=== PATIENT | female | born 1960 | race Caucasian/White ===

== ENCOUNTER 2017-04-10 15:10 | Emergency (ER) | payer MEDICARE, OTHER ==
[2017-04-10 15:17] VITALS: BP 122/65
--- NOTE | 2017-04-10 15:30 | UC ---
Throat Pain/Nasal Zachariah HPI - HPI Summary HPI Summary: C/O SENSATION OF INABILITY TO SWALLOW SOLIDS TODAY. FEELS FOOD IS GETTING STUCK. NO PROBLEM SWALLOWING LIQUIDS. VOICE IS HOARSE. IS VERY ANXIOUS ABOUT THIS. NO RESPIRATORY DIFFICULTY. NO SWELLING OF THE TONGUE OR LIPS. - History of Current Complaint Chief Complaint: UCGeneralIllness Stated Complaint: TROUBLE SWALLOWING Time Seen by Provider: 04/10/17 15:12 Hx Obtained From: Patient Onset/Duration: Sudden Onset, Still Present Severity: Moderate Pain Intensity: 2 Pain Scale Used: 0-10 Numeric Cough: None Associated Signs & Symptoms: Positive: Dysphagia - Allergies/Home Medications Allergies/Adverse Reactions: Allergies Allergy/AdvReac Type Severity Reaction Status Date / Time Latex Allergy Hives/Diff. Verified 04/10/17 15:11 Breathing/I tching Methadone Allergy Unknown Verified 04/10/17 15:11 Reaction Details Pravastatin Allergy Unknown Verified 04/10/17 15:11 Reaction Details Pregabalin [From Lyrica] AdvReac Severe Dizziness Verified 04/10/17 15:11 Home Medications: Home Medications Baclofen 1 tab PO TID PRN 04/10/17 [History Confirmed 04/10/17] PMH/Surg Hx/FS Hx/Imm Hx - Additional Past Medical History Additional PMH: CHRONIC BACK PAIN Endocrine History: Diabetes Cardiovascular History: Hypertension - Surgical History Surgical History: Yes Surgery Procedure, Year, and Place: AGE 7 - [facility] HIP SURGERY - DYSPLAGIA. TONSILECTOMY. ESOPHAGUS VOCAL CORDS - POLYPS [id number]. C3-7 LAMINECTOMY - STENOSIS. 2008 - L1-4 LAMINECTOMY Lt. L2 -3 DISCECTOMY. TUBAL LIGATION. ECTOPIC PREG. LT KNEE ARTHOSCOPY - Family History Known Family History: Negative: Blood Disorder - Social History Alcohol Use: None Substance Use Type: None Smoking Status (MU): Heavy Every Day Tobacco Smoker Type: Cigarettes Amount Used/How Often: 1/2 PPD Have You Smoked in the Last Year: Yes Household Exposure Type: Cigarettes Review of Systems Respiratory: Negative Cardiovascular: Negative Gastrointestinal: Other - DYSPHAGIA All Other Systems Reviewed And Are Negative: Yes Physical Exam Triage Information Reviewed: Yes Appearance: Well-Appearing, No Pain Distress, Well-Nourished Vital Signs: Initial Vital Signs Temp 98.5 F 04/10/17 15:11 Pulse 75 04/10/17 15:11 Resp 16 04/10/17 15:11 BP 122/65 04/10/17 15:11 Pulse Ox 97 04/10/17 15:11 Vital Signs Reviewed: Yes Eyes: Positive: Conjunctiva Clear ENT: Positive: Hearing grossly normal, Pharynx normal, Muffled/hoarse voice Neck: Positive: Supple, Nontender, No Lymphadenopathy Respiratory Exam: Normal Cardiovascular Exam: Normal Abdomen Description: Positive: Soft Musculoskeletal: Positive: No Edema Neurological: Positive: Alert Psychological: Positive: Age Appropriate Behavior Skin: Negative: rashes Diagnostics - Radiology SOFT TISSUE NECK XRAY Xray Interpretation: Positive (See Comments) - 1. NO EVIDENCE FOR RADIOPAQUE FOREIGN BODY. 2. CAROTID ATHEROSCLEROSIS. 3. MODERATE TO SEVERE CERVICAL SPONDYLOSIS. Radiology Interpretation Completed By: Radiologist Throat Pain/Nasal Course/Dx - Differential Dx/Diagnosis Provider Diagnoses: DYSPHAGIA Discharge - Discharge Plan Condition: Stable Disposition: HOME Patient Education Materials: Dysphagia (ED) Referrals: Eric Floyd MD [Primary Care Provider] - If Needed Additional Instructions: XRAY SOFT TISSUE NECK DOES NOT SHOW ANYTHING TO ACCOUNT FOR YOUR SYMPTOMS. RAPID STREP NEGATIVE. THIS MAY BE A VIRAL ILLNESS GIVING YOU LARYNGITIS AND SORE THROAT. IF SYMPTOMS ARE PERSISTENT ON WEDNESDAY CALL GI FOR AN APPT FOR FURTHER EVALUATION. IF YOUR SYMPTOMS WORSEN - YOU CAN NOT SWALLOW ANYTHING, WORSENING PAIN, FEVER, VOMITING, YOU CAN NOT HANDLE YOUR SALIVA - GO TO THE ER WITHOUT FAIL. [facility] Address: [address], [place] [address]
--- NOTE | 2017-04-10 16:11 | RAD ---
INDICATION: Dysphagia. COMPARISON: There are no prior studies available for comparison. TECHNIQUE: AP and lateral images of the soft tissue of the neck were obtained. FINDINGS: The epiglottis and aryepiglottic folds appear to be within normal limits. The retropharyngeal soft tissues appear normal. The airway appears patent. No radiopaque foreign body is seen. There is moderate to severe degenerative disc disease at the C3-C4, C4-C5, C5-C6 and C6-C7 levels. There is a calcification lateral to the C5 vertebra on the right likely representing a carotid artery calcific plaque. IMPRESSION: 1. NO EVIDENCE FOR RADIOPAQUE FOREIGN BODY. 2. CAROTID ATHEROSCLEROSIS. 3. MODERATE TO SEVERE CERVICAL SPONDYLOSIS.
== END 2017-04-10 16:41 | disposition home or self-care (01) ==
LOC: UCEAST 15:10
DX: R13.10 Dysphagia, unspecified (principal); E11.8 Type 2 diabetes mellitus with unspecified complications; I10 Essential (primary) hypertension; F17.210 Nicotine dependence, cigarettes, uncomplicated
CPT/HCPCS: 70360; 87651; 99212; G0463

== ENCOUNTER 2018-08-15 10:02 | Emergency (ER) | payer MEDICARE, OTHER ==
--- NOTE | 2018-08-15 10:42 | ED ---
Skin Complaint - HPI Summary HPI Summary: Patient is a 58 y/o F w/ c/o bruising to her right arm. She believes that she pulled a muscle a few days ago and notes the area feels hard and tender. Patient reports minimal pain and was unconcerned about the area until she spoke to her children, who convinced her to come to ED for evaluation. She denies bruising at any other region. Patient takes ASA daily, no blood thinners otherwise. Patient further denies fever, chills, ARANGO, ear pain, sore throat, blurred vision, double vision, neck pain, CP, SOB, ABD pain, back pain, dysuria , hematuria, blood in the stool, black/tarry stool, edema, rashes, depression and anxiety. PMHx of HTN, diabetes. PSHx of back surgery x2. On triage, pain is rated 1/10, nothing is reported to aggravate/alleviate Sx. Home medications and allergies are reviewed. - History of Current Complaint Chief Complaint: EDExtremityUpper Stated Complaint: PT ARM IS PURPLE Hx Obtained From: Patient Onset/Duration: Started Days Ago - a few days ago, Still Present Skin Exposure Onset/Duration: Days Ago - a few days ago Timing: Constant, Lasting Days - a few days ago Onset Severity: Mild - 1/10 Current Severity: Mild - 1/10 Pain Intensity: 1 Pain Scale Used: 0-10 Numeric - 1/10 Skin Location: Arm - right Character: Swelling, Pain - slight Aggravating Symptom(s): Nothing Alleviating Symptom(s): Nothing Associated Signs & Symptoms: Negative - Allergy/Home Medications Allergies/Adverse Reactions: Allergies Allergy/AdvReac Type Severity Reaction Status Date / Time latex Allergy Severe Hives/Diff. Verified 08/15/18 10:58 Breathing/I tching pregabalin [From Lyrica] Allergy Mild Dizziness Verified 08/15/18 10:58 methadone Allergy Unknown Unknown Verified 08/15/18 10:58 Reaction Details pravastatin Allergy Unknown Unknown Verified 08/15/18 10:58 Reaction Details Home Medications: Home Medications Naproxen Sodium [Aleve] 440 mg PO BID 08/15/18 [History Confirmed 08/15/18] PMH/Surg Hx/FS Hx/Imm Hx Endocrine/Hematology History: Reports: Hx Diabetes Denies: Hx Anemia Cardiovascular History: Reports: Hx Hypertension Denies: Hx Pacemaker/ICD GI History: Denies: Hx Jaundice History: Denies: Hx Renal Disease Musculoskeletal History: Reports: Hx Back Problems Sensory History: Denies: Hx Hearing Aid Neurological History: Reports: Other Neuro Impairments/Disorders - CHRONIC LUMBAR PAIN EVEN AFTER SURGERIES, PAIN CLINIC PATIENT Psychiatric History: Denies: Hx Panic Disorder - Cancer History Cancer Type, Location and Year: PRE CANCEROUS CERVICAL Hx Chemotherapy: No Hx Radiation Therapy: No - Surgical History Surgery Procedure, Year, and Place: AGE 7 - [facility] HIP SURGERY - DYSPLAGIA. TONSILECTOMY. ESOPHAGUS VOCAL CORDS - POLYPS [id number]. C3-7 LAMINECTOMY - STENOSIS. 2008 - L1-4 LAMINECTOMY Lt. L2 -3 DISCECTOMY. TUBAL LIGATION. ECTOPIC PREG. LT KNEE ARTHOSCOPY Infectious Disease History: No Infectious Disease History: Denies: Traveled Outside the [place] in Last 30 Days - Family History Known Family History: Negative: Blood Disorder - Social History Alcohol Use: None Substance Use Type: Reports: None Smoking Status (MU): Former Smoker Type: Cigarettes Amount Used/How Often: 2-3 cigarettes/week Have You Smoked in the Last Year: Yes Review of Systems Negative: Fever, Chills Positive: Other - NEGATIVE: double vision . Negative: Blurred Vision Negative: Sore Throat, Ear Ache Negative: Chest Pain Negative: Shortness Of Breath Negative: Abdominal Pain Positive: other - NEGATIVE: blood in stool, black/tarry stools . Negative: dysuria, hematuria Positive: Other - NEGATIVE: back pain, neck pain . Negative: Edema Positive: Bruising - right arm, area feels hard and tender. Negative: Rash Negative: Headache Negative: Anxious, Depressed All Other Systems Reviewed And Are Negative: No Physical Exam - Summary Physical Exam Summary: Appearance: Alert, conversive, nontoxic appearing Skin: Warm, dry, no mottling, no rashes; large hematoma on right arm close to the axilla. HEENT: EOMI, PERRL, moist mucous membranes Neck: No masses on the neck, supple Respiratory: Clear to auscultation, breath sounds present, no rales, no rhonchi , no wheezes Cardiovascular: RRR, pulses are symmetrical in both lower and upper extremities Abdomen: Soft, non-tender Bowel Sounds: Present Musculoskeletal: No CVA tenderness, no obvious deformity, moving all extremities in a grossly normal manner Neurological: A&Ox3, CN II-XII Intact, moving all extremities symmetrically Psychiatric: Normal affect and mood Triage Information Reviewed: Yes Vital Signs On Initial Exam: Initial Vitals Temp Pulse Resp BP Pulse Ox 97.7 F 77 18 138/95 95 08/15/18 10:24 08/15/18 10:24 08/15/18 10:24 08/15/18 10:24 08/15/18 10:24 Vital Signs Reviewed: Yes Diagnostics - Vital Signs Vital Signs Temp Pulse Resp BP Pulse Ox 08/15/18 10:24 97.7 F 77 18 138/95 95 - Laboratory Result Diagrams: 08/15/18 11:07 08/15/18 11:07 Lab Statement: Any lab studies that have been ordered have been reviewed, and results considered in the medical decision making process. Re-Evaluation - Re-Evaluation First Eval Re-Evaluation Time: 12:06 Comment: Discussed results of labs with patient. Patient will be discharged to home and follow up with PCP. She is agreeable with this plan. Course/Dx - Course Course Of Treatment: Patient is a 58 y/o F w/ c/o bruising to her right arm. She believes that she pulled a muscle a few days ago and notes the area feels hard and tender. Patient reports minimal pain and was unconcerned about the area until she spoke to her children, who convinced her to come to ED for evaluation. She denies bruising at any other region. Patient takes ASA daily, no blood thinners otherwise. On physical exam, patient is noted to have a large hematoma at the right arm close to the axilla. Labs showed glucose 192, BUN/ creatinine ratio 25.6, chloride 100, sodium 132, MPV 7, lymph % 22. Plt count was 328. Patient was discharged to home and instructed to follow up with PCP. She is agreeable with this plan. Dx of right arm contusion. - Diagnoses Provider Diagnoses: Contusion of right arm Discharge - Sign-Out/Discharge Documenting (check all that apply): Patient Departure - discharge - Discharge Plan Condition: Stable Disposition: HOME Patient Education Materials: Hematoma (ED) Referrals: Eric Floyd MD [Primary Care Provider] - Additional Instructions: Follow up with your primary care physician. return if worse or any new symptoms. Take all medications as previously instructed. - Billing Disposition and Condition Condition: STABLE Disposition: Home - Attestation Statements Document Initiated by Scribe: Yes Documenting Scribe: Christiano Nunez Provider For Whom Scribe is Documenting (Include Credential): Jo Dejesus MD Scribe Attestation: I, Christiano Nunez , scribed for Jo Dejesus MD on 08/15/18 at 2027. Scribe Documentation Reviewed: Yes Provider Attestation: The documentation as recorded by the Christiano ward accurately reflects the service I personally performed and the decisions made by me, Jo Dejesus MD
[2018-08-15 11:19] LABS: ABS Basophils 0 10^3/ul (0-0.2); ABS Eosinophils 0.3 10^3/ul (0-0.6); ABS Monocytes 0.5 10^3/ul (0-0.8); ABS Neutrophils 6.2 10^3/ul (1.5-7.7); ABS Nucleated RBC 0 10^3/ul; Eosinophil % 3.2 % (0-6); Hematocrit 41 % (35-47); Hemoglobin 13.8 g/dl (12.0-16.0); Mean Corpuscular HGB Conc 34 g/dl (31-36); Mean Corpuscular Hemoglobin 30 pg (27-31); Mean Corpuscular Volume 88 fL (80-97); Nucleated Red Blood Cells % 0.1; Platelet Count 328 10^3/ul (150-450); Red Blood Count 4.66 10^6/ul (4.00-5.40); Red Cell Distribution Width 14 % (10.5-15)
[2018-08-15 11:34] LABS: INR 0.97 (0.77-1.02)
[2018-08-15 11:35] LABS: EGFR Non-African American 67.3 (>60)
[2018-08-15 12:43] VITALS: BP 125/80
== END 2018-08-15 12:40 | disposition home or self-care (01) ==
LOC: ED 10:02
DX: S40.021A Contusion of right upper arm, initial encounter (principal); Z87.891 Personal history of nicotine dependence; E11.9 Type 2 diabetes mellitus without complications; I10 Essential (primary) hypertension; Z79.82 Long term (current) use of aspirin; X58.XXXA Exposure to other specified factors, initial encounter; Y92.9 Unspecified place or not applicable
CPT/HCPCS: 36415; 80053; 85025; 85610; 85730; 99282

== ENCOUNTER 2018-10-18 15:03 | Emergency (ER) | payer MEDICARE, OTHER ==
[2018-10-18 15:28] VITALS: BP 160/73
[2018-10-18] MEDS ORDERED: Albuterol/Ipratropium NEB.SOL* Albuterol 2.5 MG/Ipratropium 0.5 MG 3 ML INH ONE (15:56)
--- NOTE | 2018-10-18 16:01 | ED ---
Respiratory - HPI Summary HPI Summary: Ms. Barrett presents to the emergency department stating that she has had URI symptoms for couple of weeks. She was seen by her PCP who started her on an inhaler and an antibiotic. Most of her symptoms have resolved but she continues to cough sometimes paroxysmally and severely causing shortness of breath and sometimes she feels short of breath when ambulating. She denies fevers - History of Current Complaint Chief Complaint: UCRespiratory Stated Complaint: COUGH Time Seen by Provider: 10/18/18 15:45 Hx Obtained From: Patient Onset/Duration: Gradual Onset Timing: Constant Initial Severity: Mild Current Severity: Moderate Pain Intensity: 1 Character: Cough (Productive), Dyspnea on Exertion Sputum Amount: Large Aggravating Factor(s): Nothing Alleviating Factor(s): MDI (Frequency Of Use) Associated Signs and Symptoms: SOB - Allergy/Home Medications Allergies/Adverse Reactions: Allergies Allergy/AdvReac Type Severity Reaction Status Date / Time latex Allergy Severe Hives/Diff. Verified 10/18/18 15:12 Breathing/I tching pregabalin [From Lyrica] Allergy Mild Dizziness Verified 10/18/18 15:12 methadone Allergy Unknown Unknown Verified 10/18/18 15:12 Reaction Details pravastatin Allergy Unknown Unknown Verified 10/18/18 15:12 Reaction Details Home Medications: Home Medications Albuterol HFA INHALER* [Ventolin HFA Inhaler*] 1 - 2 puff INH Q4H PRN 10/18/18 [ History Confirmed 10/18/18] Clarithromycin TAB* [Biaxin 250 MG TAB*] 250 mg PO BID 10/18/18 [History Confirmed 10/18/18] PMH/Surg Hx/FS Hx/Imm Hx Endocrine/Hematology History: Reports: Hx Diabetes - meds Denies: Hx Thyroid Disease, Hx Anemia Cardiovascular History: Reports: Hx Hypertension - meds Denies: Hx Pacemaker/ICD Respiratory History: Denies: Hx Asthma, Hx Chronic Obstructive Pulmonary Disease (COPD) GI History: Denies: Hx Jaundice, Hx Ulcer History: Denies: Hx Renal Disease Musculoskeletal History: Reports: Hx Back Problems Sensory History: Denies: Hx Hearing Aid Neurological History: Reports: Other Neuro Impairments/Disorders - CHRONIC LUMBAR PAIN EVEN AFTER SURGERIES, PAIN CLINIC PATIENT Psychiatric History: Denies: Hx Panic Disorder - Cancer History Cancer Type, Location and Year: PRE CANCEROUS CERVICAL Hx Chemotherapy: No Hx Radiation Therapy: No - Surgical History Surgery Procedure, Year, and Place: AGE 7 - [facility] HIP SURGERY - DYSPLAGIA. TONSILECTOMY. ESOPHAGUS VOCAL CORDS - POLYPS [id number]. C3-7 LAMINECTOMY - STENOSIS. 2009 - L1-4 LAMINECTOMY Lt. L2 -3 DISCECTOMY. TUBAL LIGATION. ECTOPIC PREG. LT KNEE ARTHOSCOPY Infectious Disease History: No Infectious Disease History: Denies: Hx Hepatitis, Hx Human Immunodeficiency Virus (HIV), Traveled Outside the [place] in Last 30 Days - Family History Known Family History: Negative: Blood Disorder - Social History Alcohol Use: None Substance Use Type: Reports: None Smoking Status (MU): Former Smoker Type: Cigarettes Amount Used/How Often: 2-3 cigarettes/week Have You Smoked in the Last Year: Yes Review of Systems Constitutional: Negative Eyes: Negative ENT: Negative Positive: Shortness Of Breath, Cough Gastrointestinal: Negative All Other Systems Reviewed And Are Negative: Yes Physical Exam - Summary Physical Exam Summary: She is non-toxic in appearance and her vitals are stable. Triage Information Reviewed: Yes Vital Signs On Initial Exam: Initial Vitals Temp Pulse Resp BP Pulse Ox 98.8 F 72 17 160/73 93 10/18/18 15:21 10/18/18 15:21 10/18/18 15:21 10/18/18 15:21 10/18/18 15:21 Vital Signs Reviewed: Yes Appearance: Positive: Well-Appearing Skin: Positive: Warm, Skin Color Reflects Adequate Perfusion, Dry Eyes: Positive: Normal ENT: Positive: Normal ENT inspection Neck: Positive: Supple Respiratory/Lung Sounds: Positive: Wheezes - Slight expiratory Cardiovascular: Positive: Normal Neurological: Positive: Normal Diagnostics - Vital Signs Vital Signs Temp Pulse Resp BP Pulse Ox 10/18/18 15:21 98.8 F 72 17 160/73 93 - Laboratory Lab Statement: Any lab studies that have been ordered have been reviewed, and results considered in the medical decision making process. - Radiology CXR Radiology Interpretation Completed By: Radiologist - No acute process Disposition - Course Course Of Treatment: Ms. Barrett presented to the department complaining of URI' s symptoms for about a week. She saw her physician is started on antibiotics and an inhaler but she still complaining of shortness of breath with any exertion. She was nontoxic in appearance and her vital signs are stable. She did have an expiratory wheeze especially with coughing. She was given a nebulizer treatment here which improved her clinically. Chest x-ray was unremarkable. I recommended a Medrol Dosepak. She is diabetic and does fingersticks at night I recommended she use her sliding scale and warned her that her blood sugars could go up with the steroid treatment. I recommended close follow-up with her PCP. Her blood pressure was a little bit high and I recommended she follow up with her PCP for that also. - Diagnoses Provider Diagnoses: Bronchospasm with bronchitis, acute Discharge - Sign-Out/Discharge Documenting (check all that apply): Patient Departure All imaging exams completed and their final reports reviewed: Yes - Discharge Plan Condition: Stable Disposition: HOME Prescriptions: methylPREDNISolone [Medrol Dosepak 4 MG*] 4 mg PO .SEE ALBINA INSTRUCTION #1 tab Patient Education Materials: Bronchospasm (ED), Acute Bronchitis (ED) Referrals: Eric Floyd MD [Primary Care Provider] - - Billing Disposition and Condition Condition: STABLE Disposition: Home
== END 2018-10-18 17:17 | disposition home or self-care (01) ==
LOC: UCEAST 15:03
DX: J20.9 Acute bronchitis, unspecified (principal); E11.9 Type 2 diabetes mellitus without complications; I10 Essential (primary) hypertension; J44.9 Chronic obstructive pulmonary disease, unspecified; J45.909 Unspecified asthma, uncomplicated; G89.29 Other chronic pain; M54.5 Low back pain; Z91.040 Latex allergy status; Z88.8 Allergy status to other drugs, medicaments and biological substances; Z88.5 Allergy status to narcotic agent; Z90.89 Acquired absence of other organs; Z87.891 Personal history of nicotine dependence
CPT/HCPCS: 71046; 99212; A9270-GY; G0463

== ENCOUNTER 2018-11-11 11:12 | Emergency (ER) | payer MEDICARE, OTHER ==
[2018-11-11 12:01] VITALS: BP 118/88
--- NOTE | 2018-11-11 12:30 | UC ---
Shortness of Breath HPI - HPI Summary HPI Summary: Patient is a 58-year-old female who has had cough congestion postnasal drip times weeks. She states in the past week she has had some dyspnea. He denies any fever or chills. She denies any chest pain. - History of Current Complaint Chief Complaint: UCRespiratory Stated Complaint: COUGH SOB Time Seen by Provider: 11/11/18 12:21 Hx Obtained From: Patient Onset/Duration: Gradual Onset, Lasting Weeks Timing: Constant Current Severity: None Dyspnea At: Exertion Aggrevating Factors: Recumbent Position Alleviating Factors: Bronchodilators Associated Signs & Symptoms: Positive: Cough (Productive), Nasal Congestion, Edema - Allergy/Home Medications Allergies/Adverse Reactions: Allergies Allergy/AdvReac Type Severity Reaction Status Date / Time latex Allergy Severe Hives/Diff. Verified 11/11/18 11:52 Breathing/I tching pregabalin [From Lyrica] Allergy Mild Dizziness Verified 11/11/18 11:52 methadone Allergy Unknown Unknown Verified 11/11/18 11:52 Reaction Details pravastatin Allergy Unknown Unknown Verified 11/11/18 11:52 Reaction Details PMH/Surg Hx/FS Hx/Imm Hx Previously Healthy: Yes Endocrine History: Diabetes Cardiovascular History: Hypertension Respiratory History: Bronchitis - Surgical History Surgical History: Yes Surgery Procedure, Year, and Place: AGE 7 - [place] HIP SURGERY - DYSPLAGIA. TONSILECTOMY. ESOPHAGUS VOCAL CORDS - POLYPS [id number]. C3-7 LAMINECTOMY - STENOSIS. 2009 - L1-4 LAMINECTOMY Lt. L2 -3 DISCECTOMY. TUBAL LIGATION. ECTOPIC PREG. LT KNEE ARTHOSCOPY - Family History Known Family History: Positive: Hypertension Negative: Blood Disorder - Social History Alcohol Use: None Substance Use Type: None Smoking Status (MU): Former Smoker Type: Cigarettes Amount Used/How Often: 2-3 cigarettes/week Have You Smoked in the Last Year: Yes Household Exposure Type: Cigarettes - Immunization History Most Recent Tetanus Shot: UTD Review of Systems All Other Systems Reviewed And Are Negative: Yes Constitutional: Positive: Fatigue Skin: Positive: Negative Eyes: Positive: Negative ENT: Positive: Negative Respiratory: Positive: Shortness Of Breath, Cough Cardiovascular: Positive: Negative Gastrointestinal: Positive: Negative Genitourinary: Positive: Negative Motor: Positive: Negative Neurovascular: Positive: Negative Musculoskeletal: Positive: Edema Neurological: Positive: Negative Psychological: Positive: Negative Physical Exam Triage Information Reviewed: Yes Appearance: Well-Appearing, No Pain Distress, Well-Nourished Vital Signs: Initial Vital Signs Temp 98.5 F 11/11/18 11:33 Pulse 77 11/11/18 11:33 Resp 17 11/11/18 11:33 BP 118/88 11/11/18 11:33 Pulse Ox 97 11/11/18 11:33 Vital Signs Reviewed: Yes Eyes: Positive: Conjunctiva Clear ENT: Positive: Hearing grossly normal, Nasal congestion, Hoarse voice, Sinus tenderness. Negative: Nasal drainage Neck: Positive: Supple, Nontender Respiratory: Positive: No respiratory distress, No accessory muscle use, Wheezing - with forced expiration. Negative: Respiratory distress Cardiovascular: Positive: RRR, No Murmur Musculoskeletal: Positive: ROM Intact, Edema @ - +1 pretibial edema Neurological: Positive: Alert Psychological Exam: Normal Skin Exam: Normal Diagnostics - Radiology No standard instances Radiology Interpretation Completed By: Radiologist Summary of Radiographic Findings: CXR NAD Re-Evaluation - Re-Evaluation First Eval Re-Evaluation Time: 13:44 Change: Improved Comment: better air movement, lungs CTA Shortness of Breath Dx - Differential Dx/Diagnosis Provider Diagnosis: Bronchospasm with bronchitis, acute Discharge - Sign-Out/Discharge Documenting (check all that apply): Patient Departure All imaging exams completed and their final reports reviewed: Yes - Discharge Plan Condition: Stable Disposition: HOME Patient Education Materials: Acute Bronchitis (ED) Referrals: Eric Floyd MD [Primary Care Provider] - 3 Days Additional Instructions: use inhaler as directed - Billing Disposition and Condition Condition: STABLE Disposition: Home
[2018-11-11] MEDS ORDERED: Albuterol 2.5 MG/3 ML NEB.SOL* (0.083%) INH ONE (13:01)
[2018-11-11] MEDS ORDERED: Ipratropium 0.5MG/2.5ML NEB* 0.5 MG/2.5 ML NEB.SOLN INH ONE (13:01)
== END 2018-11-11 13:53 | disposition home or self-care (01) ==
LOC: UCEAST 11:12
DX: J20.9 Acute bronchitis, unspecified (principal); Z88.8 Allergy status to other drugs, medicaments and biological substances; Z91.040 Latex allergy status; Z87.891 Personal history of nicotine dependence
CPT/HCPCS: 71046; 99213; G0463

== ENCOUNTER 2019-11-11 11:40 | Emergency (ER) | payer OTHER ==
--- NOTE | 2019-11-11 12:30 | UC ---
Hip/Pelvis Pain - HPI Summary HPI Summary: patient fell 3 days ago-she is still limping on right leg and has pain--has bilateral pinning of hips-- - History Of Current Complaint Chief Complaint: UCLowerExtremity Stated Complaint: HIP PAIN Time Seen by Provider: 11/11/19 12:24 Hx Obtained From: Patient Hx Last Menstrual Period: menapause ?: No Mechanism Of Injury: fall Onset/Duration: Sudden Onset, Worse Since - this morning right leg is not as sturdy Timing: Constant Severity Initially: Moderate Severity Currently: Moderate Pain Intensity: 8 Pain Scale Used: 0-10 Numeric Location: Discrete At: - right hip Character Of Pain: Aching Aggravating Factor(s): Nothing Alleviating Factor(s): Nothing Associated Signs And Symptoms: Positive: Negative - Allergies/Home Medications Allergies/Adverse Reactions: Allergies Allergy/AdvReac Type Severity Reaction Status Date / Time latex Allergy Severe Hives/Diff. Verified 11/11/19 11:53 Breathing/I tching pregabalin [From Lyrica] Allergy Mild Dizziness Verified 11/11/19 11:53 methadone Allergy Unknown Unknown Verified 11/11/19 11:53 Reaction Details pravastatin Allergy Unknown Unknown Verified 11/11/19 11:53 Reaction Details PMH/Surg Hx/FS Hx/Imm Hx Previously Healthy: No Endocrine History: Diabetes Cardiovascular History: Hypertension - Surgical History Surgical History: Yes Surgery Procedure, Year, and Place: AGE 7 - [facility] HIP SURGERY - DYSPLAGIA. TONSILECTOMY. ESOPHAGUS VOCAL CORDS - POLYPS [id number]. C3-7 LAMINECTOMY - STENOSIS. 2009 - L1-4 LAMINECTOMY Lt. L2 -3 DISCECTOMY. TUBAL LIGATION. ECTOPIC PREG. LT KNEE ARTHOSCOPY - Family History Known Family History: Positive: Hypertension Negative: Blood Disorder - Social History Occupation: Disabled Lives: With Family Alcohol Use: None Substance Use Type: None Smoking Status (MU): Former Smoker Type: Cigarettes Amount Used/How Often: 1-2 cigarettes/day sometimes Length of Time of Smoking/Using Tobacco: states "years and years" Have You Smoked in the Last Year: Yes Household Exposure Type: Cigarettes - Immunization History Most Recent Tetanus Shot: UTD Review of Systems All Other Systems Reviewed And Are Negative: Yes Constitutional: Positive: Negative Skin: Positive: Negative Eyes: Positive: Negative ENT: Positive: Negative Respiratory: Positive: Negative Cardiovascular: Positive: Negative Gastrointestinal: Positive: Negative Genitourinary: Positive: Negative Motor: Positive: Weakness - right leg Neurovascular: Positive: Negative Musculoskeletal: Positive: Arthralgia - right hip Neurological: Positive: Negative Psychological: Positive: Negative Is Patient Immunocompromised?: No Physical Exam Triage Information Reviewed: Yes Appearance: Well-Appearing, No Pain Distress, Obese Vital Signs: Initial Vital Signs Temp 98.2 F 11/11/19 11:55 Pulse 75 11/11/19 11:55 Resp 18 11/11/19 11:55 BP 0/0 11/11/19 11:55 Pulse Ox 97 11/11/19 11:55 Vital Signs Reviewed: Yes Eye Exam: Normal Eyes: Positive: Conjunctiva Clear ENT Exam: Normal ENT: Positive: Normal ENT inspection, Hearing grossly normal. Negative: Trismus , Muffled voice, Hoarse voice Dental Exam: Normal Neck exam: Normal Neck: Positive: Supple, Nontender Respiratory Exam: Normal Respiratory: Positive: Chest non-tender, Lungs clear, Normal breath sounds, No respiratory distress, No accessory muscle use Cardiovascular Exam: Normal Cardiovascular: Positive: RRR, No Murmur, Pulses Normal, Brisk Capillary Refill Musculoskeletal: Positive: ROM Intact, No Edema, Strength Limited @ - right leg Neurological Exam: Normal Neurological: Positive: Alert, Muscle Tone Normal Psychological Exam: Normal Psychological: Positive: Normal Response To Family Skin Exam: Normal Diagnostics - Radiology No standard instances Radiology Interpretation Completed By: ED Physician, Radiologist - no acute injury right hip or lumbar spine Hip Injury Course/Dx - Course Course Of Treatment: may continue pain medications as rx---encourage patient to use walker until steady on feet and re seen by pcp - Differential Dx/Diagnosis Provider Diagnosis: Fall, Right hip pain Discharge ED - Sign-Out/Discharge Documenting (check all that apply): Patient Departure All imaging exams completed and their final reports reviewed: Yes - Discharge Plan Condition: Stable Disposition: HOME Patient Education Materials: Fall Prevention (ED), Hip Pain (ED) Referrals: Eric Floyd MD [Primary Care Provider] - 2 Days - Billing Disposition and Condition Condition: STABLE Disposition: Home
[2019-11-11 13:40] VITALS: BP 100/58
== END 2019-11-11 14:05 | disposition home or self-care (01) ==
LOC: UCEAST 11:40
DX: M25.551 Pain in right hip (principal); W18.30XA Fall on same level, unspecified, initial encounter; Y92.9 Unspecified place or not applicable; E11.9 Type 2 diabetes mellitus without complications; I10 Essential (primary) hypertension; Z88.5 Allergy status to narcotic agent; Z88.8 Allergy status to other drugs, medicaments and biological substances; Z91.040 Latex allergy status; Z87.891 Personal history of nicotine dependence
CPT/HCPCS: 72110; 99201; G0463

== ENCOUNTER 2023-09-19 11:39 | Inpatient (IN) ==
[2023-09-19 14:04] LABS: Venous Bicarbonate HCO3 27.9 mmol/L (24-28)
[2023-09-19 14:08] LABS: ABS Eosinophils 0.1 10^3/uL (0.0-0.5); ABS Lymphocytes 1.2 10^3/uL (1.0-4.8); ABS Monocytes 0.6 10^3/uL (0.0-0.9); ABS Neutrophils 8.2 10^3/uL (1.5-7.6); ABS Nucleated RBC 0.01 10^3/ul; Eosinophil % 1.5 %; Hematocrit 47.6 % (35-45); Hemoglobin 16.2 g/dL (11.5-14.3); Lymphocyte % 11.9 %; Mean Corpuscular Hemoglobin 29.2 pg (27-33); Mean Corpuscular Hgb Conc 34.1 g/dL (31-36); Mean Corpuscular Volume 85.8 fL (80-97); Mean Platelet Volume 7.5 fL (7.5-11.2); Nucleated Red Blood Cells % 0.1 %/100WBC (0.0-0.8); Platelet Count 354 10^3/uL (150-450); Red Blood Count 5.55 10^6/uL (3.63-4.92); Red Cell Distribution Width 14.3 % (12-17); White Blood Count 10.1 10^3/uL (3.8-11.8)
[2023-09-19 14:27] LABS: Albumin 3.6 g/dL (3.2-5.2); Albumin/Globulin Ratio 1.3 (1-3); Calcium 8.9 mg/dL (8.6-10.3); Creatinine, Serum 0.76 mg/dL (0.51-0.95); Globulin 2.8 g/dL (2-4); Total Bilirubin 0.7 mg/dL (0.2-1.0); Total Protein 6.4 g/dL (6.4-8.9); eGFR CKD-EPI 86.9 (>60)
[2023-09-19] MEDS ORDERED: Albuterol/Ipratropium NEB.SOL (2.5/0.5 MG) 3 ML NEB.SOLN INH ONE (14:32)
[2023-09-19] MEDS ORDERED: Lactated Ringers 1000 ml BAG 1,000 ML IV ONE (15:10)
[2023-09-19] MEDS ORDERED: Dextrose 50% Syringe 50 ml 25 GM/50 ML SYRINGE IV PUSH ONE (15:22)
[2023-09-19 15:26] LABS: TSH Ultra Thyroid Stim Horm 0.38 mcIU/mL (0.34-5.60)
[2023-09-19 15:36] LABS: Urine Appearance Clear; Urine Bilirubin Negative (Negative); Urine Blood 1+ (Negative); Urine Color Yellow; Urine Glucose 3+(>=500 mg/dL) (Negative); Urine Ketones Negative (Negative); Urine Nitrite Negative (Negative); Urine Protein Negative (Negative); Urine Specific Gravity 1.029 (1.002-1.030); Urine Urobilinogen Negative (Negative)
[2023-09-19 15:42] LABS: Urine Bacteria Absent (Absent); Urine Red Blood Cell 2+(6-10/hpf) (Absent); Urine Squamous Epithelial Cell Present (Absent); Urine White Blood Cell 2+(11-20/hpf) (Absent)
[2023-09-19] MEDS ORDERED: Dextrose 50% Syringe 50 ml 25 GM/50 ML SYRINGE IV PUSH PRN ×2 (17:34→17:41)
[2023-09-19 17:41] LABS: Glucose Confirmatory 433 mg/dL (70-100)
[2023-09-19] MEDS ORDERED: NORMOSOL-R pH 7.4 1000 mL BAG 1,000 ML IV ONE (17:41)
[2023-09-19] MEDS ORDERED: Albuterol/Ipratropium NEB.SOL (2.5/0.5 MG) 3 ML NEB.SOLN INH PRN (17:45)
[2023-09-19] MEDS ORDERED: Insulin Infusion 100unit/100mL 100 UNIT/100 ML BAG IV SCH (18:00)
[2023-09-19] MEDS ORDERED: D5W 1/2 NS 1000 ml BAG 1,000 ML IV SCH (18:00)
[2023-09-19] MEDS ORDERED: NORMOSOL-R pH 7.4 1000 mL BAG 1,000 ML IV SCH (19:00)
[2023-09-19 20:54] LABS: Calcium 8.9 mg/dL (8.6-10.3); Creatinine, Serum 0.66 mg/dL (0.51-0.95); Potassium 3.8 mmol/L (3.5-5.0); eGFR CKD-EPI 97.3 (>60)
[2023-09-19] MEDS: Heparin 5000 UNITS/ML 1 mL VIAL SUBCUT SCH (21:13)
[2023-09-19] MEDS: Insulin GLARGINE 100 un/ml 10 ml VIAL SUBCUT SCH (21:14)
[2023-09-20] MEDS: Heparin 5000 UNITS/ML 1 mL VIAL SUBCUT SCH ×2 (05:29→21:41)
[2023-09-20 05:57] LABS: ABS Eosinophils 0.2 10^3/uL (0.0-0.5); ABS Lymphocytes 1.3 10^3/uL (1.0-4.8); ABS Monocytes 0.5 10^3/uL (0.0-0.9); ABS Neutrophils 6.6 10^3/uL (1.5-7.6); ABS Nucleated RBC 0.03 10^3/ul; Eosinophil % 2.1 %; Hematocrit 45.8 % (35-45); Hemoglobin 15.5 g/dL (11.5-14.3); Lymphocyte % 15.3 %; Mean Corpuscular Hemoglobin 28.8 pg (27-33); Mean Corpuscular Hgb Conc 33.8 g/dL (31-36); Mean Platelet Volume 7.3 fL (7.5-11.2); Nucleated Red Blood Cells % 0.3 %/100WBC (0.0-0.8); Platelet Count 285 10^3/uL (150-450); Red Blood Count 5.39 10^6/uL (3.63-4.92); Red Cell Distribution Width 14.3 % (12-17); White Blood Count 8.7 10^3/uL (3.8-11.8)
[2023-09-20 06:16] LABS: Calcium 8.9 mg/dL (8.6-10.3); Creatinine, Serum 0.45 mg/dL (0.51-0.95); HDL Cholesterol 27.9 mg/dL; Potassium 3.6 mmol/L (3.5-5.0); eGFR CKD-EPI 106.7 (>60)
[2023-09-20 06:46] LABS: TSH Ultra Thyroid Stim Horm 0.64 mcIU/mL (0.34-5.60)
[2023-09-20] MEDS ORDERED: Cyanocobalamin INJ 1,000 MCG/ML VIAL 1 ML VIAL IM ONE (18:18)
[2023-09-20] MEDS: Insulin GLARGINE 100 un/ml 10 ml VIAL SUBCUT SCH (22:35)
[2023-09-21 06:48] LABS: ABS Eosinophils 0.2 10^3/uL (0.0-0.5); ABS Lymphocytes 1.1 10^3/uL (1.0-4.8); ABS Monocytes 0.6 10^3/uL (0.0-0.9); ABS Neutrophils 7.4 10^3/uL (1.5-7.6); ABS Nucleated RBC 0.01 10^3/ul; Eosinophil % 2.5 %; Hematocrit 44.2 % (35-45); Hemoglobin 15.1 g/dL (11.5-14.3); Lymphocyte % 11.8 %; Mean Corpuscular Hemoglobin 29.1 pg (27-33); Mean Corpuscular Hgb Conc 34.1 g/dL (31-36); Mean Corpuscular Volume 85.3 fL (80-97); Mean Platelet Volume 7.4 fL (7.5-11.2); Nucleated Red Blood Cells % 0.1 %/100WBC (0.0-0.8); Platelet Count 275 10^3/uL (150-450); Red Blood Count 5.19 10^6/uL (3.63-4.92); Red Cell Distribution Width 14.2 % (12-17); White Blood Count 9.2 10^3/uL (3.8-11.8)
[2023-09-21 07:33] LABS: Albumin 3.3 g/dL (3.2-5.2); Albumin/Globulin Ratio 1.2 (1-3); Calcium 8.9 mg/dL (8.6-10.3); Creatinine, Serum 0.43 mg/dL (0.51-0.95); Globulin 2.7 g/dL (2-4); Magnesium 1.4 mg/dL (1.9-2.7); Potassium 3.4 mmol/L (3.5-5.0); Total Bilirubin 0.7 mg/dL (0.2-1.0); eGFR CKD-EPI 107.9 (>60)
[2023-09-21] MEDS ORDERED: Insulin GLARGINE 100 un/ml 10 ml VIAL SUBCUT SCH ×2 (09:00→21:00)
[2023-09-21] MEDS: Enoxaparin 40 MG/0.4 ML SYR SUBCUT SCH (10:45)
[2023-09-21] MEDS ORDERED: Magnesium Sulfate 2 gm BAG 2 GM/50 ML BAG IVPB ONE (12:36)
[2023-09-21] MEDS ORDERED: Lorazepam PYXIS KEY PRN (13:47)
[2023-09-21] MEDS ORDERED: LORazepam 2 mg VIAL 1 ml IV PUSH ONE ×2 (13:48→22:00)
[2023-09-21] MEDS ORDERED: Magnesium Sulfate IV 1GM/100ML 1 GM/100 ML BAG IV ONE (14:36)
[2023-09-21] MEDS ORDERED: Influenza vaccine *QUAD* *2023-24* 0.5 ML SYRINGE IM ONE (15:00)
[2023-09-22 07:57] LABS: Calcium 8.9 mg/dL (8.6-10.3); Creatinine, Serum 0.48 mg/dL (0.51-0.95); Magnesium 1.7 mg/dL (1.9-2.7); Potassium 3.7 mmol/L (3.5-5.0)
[2023-09-22] MEDS: Enoxaparin 40 MG/0.4 ML SYR SUBCUT SCH (09:56)
[2023-09-22] MEDS: Insulin GLARGINE 100 un/ml 10 ml VIAL SUBCUT SCH (20:41)
[2023-09-23 08:44] LABS: Calcium 8.9 mg/dL (8.6-10.3); Creatinine, Serum 0.44 mg/dL (0.51-0.95); Magnesium 1.5 mg/dL (1.9-2.7); Potassium 4.1 mmol/L (3.5-5.0); eGFR CKD-EPI 107.3 (>60)
[2023-09-23] MEDS: Insulin GLARGINE 100 un/ml 10 ml VIAL SUBCUT SCH ×2 (09:14→21:31)
[2023-09-23] MEDS: Enoxaparin 40 MG/0.4 ML SYR SUBCUT SCH (09:14)
[2023-09-23] MEDS ORDERED: Magnesium Sulf 4 GM/100 ML IV 4,000 MG/100 ML BAG IVPB ONE (11:51)
[2023-09-23] MEDS: Nystatin TOP POWDER 15 GM BTL TOPICAL SCH (21:31)
[2023-09-24] MEDS: Insulin GLARGINE 100 un/ml 10 ml VIAL SUBCUT SCH ×2 (09:08→20:54)
[2023-09-24] MEDS: Enoxaparin 40 MG/0.4 ML SYR SUBCUT SCH (09:08)
[2023-09-24] MEDS: Nystatin TOP POWDER 15 GM BTL TOPICAL SCH ×3 (09:10→20:57)
[2023-09-25 06:05] LABS: ABS Eosinophils 0.2 10^3/uL (0.0-0.5); ABS Lymphocytes 1.6 10^3/uL (1.0-4.8); ABS Monocytes 0.6 10^3/uL (0.0-0.9); ABS Neutrophils 5.2 10^3/uL (1.5-7.6); ABS Nucleated RBC 0.02 10^3/ul; Eosinophil % 3.3 %; Hematocrit 43.2 % (35-45); Hemoglobin 14.5 g/dL (11.5-14.3); Lymphocyte % 20.4 %; Mean Corpuscular Hgb Conc 33.5 g/dL (31-36); Mean Corpuscular Volume 86.4 fL (80-97); Mean Platelet Volume 7.3 fL (7.5-11.2); Nucleated Red Blood Cells % 0.3 %/100WBC (0.0-0.8); Platelet Count 294 10^3/uL (150-450); Red Blood Count 5.01 10^6/uL (3.63-4.92); Red Cell Distribution Width 14.4 % (12-17); White Blood Count 7.6 10^3/uL (3.8-11.8)
[2023-09-25 06:20] LABS: Calcium 8.9 mg/dL (8.6-10.3); Creatinine, Serum 0.46 mg/dL (0.51-0.95); Magnesium 1.7 mg/dL (1.9-2.7); Potassium 4.2 mmol/L (3.5-5.0); eGFR CKD-EPI 106.1 (>60)
[2023-09-25] MEDS ORDERED: Magnesium Sulfate 2 gm BAG 2 GM/50 ML BAG IVPB ONE (09:04)
[2023-09-25] MEDS: Enoxaparin 40 MG/0.4 ML SYR SUBCUT SCH (09:41)
[2023-09-25] MEDS: Insulin GLARGINE 100 un/ml 10 ml VIAL SUBCUT SCH ×2 (09:41→21:42)
[2023-09-25] MEDS: Nystatin TOP POWDER 15 GM BTL TOPICAL SCH ×3 (10:00→21:44)
[2023-09-25] MEDS ORDERED: Magnesium Sulfate IV 1GM/100ML 1 GM/100 ML BAG IV ONE (11:04)
[2023-09-26] MEDS: Insulin GLARGINE 100 un/ml 10 ml VIAL SUBCUT SCH (09:42)
[2023-09-26] MEDS: Enoxaparin 40 MG/0.4 ML SYR SUBCUT SCH (09:42)
[2023-09-26] MEDS: Nystatin TOP POWDER 15 GM BTL TOPICAL SCH (09:44)
[2023-09-26 10:32] VITALS: BP 129/81
== END 2023-09-26 14:00 | disposition home or self-care (01) | DRG 884 ==
LOC: ED 11:39 → EDHOLD 17:24 → SUATTDRO 17:24 → EDHOLD 09-20 08:32 → MEDTELE 09-20 13:00 → MED 09-23 16:55
PROVIDERS: ADMIT Internal Medicine; ATTEND Student in an Organized Health Care Education/Training Program

== ENCOUNTER 2024-07-01 09:32 | Observation (INO) ==
[2024-07-01] MEDS: Acetaminophen IV 1 GM/100ML 1,000 MG/100 ML BAG IV ONE (10:54)
[2024-07-01 11:07] LABS: ABS Eosinophils 0.2 10^3/uL (0.0-0.5); ABS Lymphocytes 1.3 10^3/uL (1.0-4.8); ABS Monocytes 0.8 10^3/uL (0.0-0.9); ABS Neutrophils 11.4 10^3/uL (1.5-7.6); ABS Nucleated RBC 0.01 10^3/ul; Eosinophil % 1.1 %; Hematocrit 39.1 % (35-45); Hemoglobin 13.2 g/dL (11.5-14.3); Lymphocyte % 9.6 %; Mean Corpuscular Hemoglobin 26.9 pg (27-33); Mean Corpuscular Hgb Conc 33.7 g/dL (31-36); Mean Corpuscular Volume 79.9 fL (80-97); Mean Platelet Volume 6.9 fL (7.5-11.2); Nucleated Red Blood Cells % 0.1 %/100WBC (0.0-0.8); Platelet Count 446 10^3/uL (150-450); Red Cell Distribution Width 17.2 % (12-17); White Blood Count 13.7 10^3/uL (3.8-11.8)
[2024-07-01 11:43] LABS: Urine Appearance Clear; Urine Bilirubin Negative (Negative); Urine Blood Negative (Negative); Urine Color Yellow; Urine Glucose Negative (Negative); Urine Ketones Negative (Negative); Urine Nitrite Negative (Negative); Urine Protein Trace (Negative); Urine Specific Gravity 1.019 (1.002-1.030); Urine Urobilinogen Negative (Negative)
[2024-07-01 11:55] LABS: Albumin 3.7 g/dL (3.2-5.2); Albumin/Globulin Ratio 1.2 (1-3); Calcium 9.4 mg/dL (8.6-10.3); Creatinine, Serum 0.46 mg/dL (0.51-0.95); Globulin 3.1 g/dL (2-4); Potassium 4.5 mmol/L (3.5-5.0); Total Bilirubin 0.6 mg/dL (0.2-1.0); Total Protein 6.8 g/dL (6.4-8.9); eGFR CKD-EPI 106.1 (>60)
[2024-07-01] MEDS: Morphine 4 MG/ML VIAL (1 ml) IV ONE (12:31)
[2024-07-01 12:39] LABS: High Sensitivity Troponin 1 Hr 4 pg/mL (<15)
[2024-07-01] MEDS ORDERED: LORazepam 2 MG/ML 1 mL Syringe IV ONE (13:58)
[2024-07-01] MEDS: LORazepam 2 mg VIAL 1 ml IV PUSH ONE (14:14)
[2024-07-01] MEDS ORDERED: Senna TAB 8.6 mg TAB PO PRN (16:05)
[2024-07-01] MEDS: Enoxaparin 40 MG/0.4 ML SYR SUBCUT SCH (18:15)
[2024-07-01] MEDS ORDERED: Dextrose 50% Syringe 50 ml 25 GM/50 ML SYRINGE IV PUSH PRN (19:42)
[2024-07-01] MEDS ORDERED: INSULIN GLARGINE (NF) 300 UNIT/ML INJ SUBCUT SCH (21:00)
[2024-07-01] MEDS: Insulin GLARGINE 100 un/ml 10 ml VIAL SUBCUT SCH (21:41)
[2024-07-02 05:31] LABS: ABS Basophils 0.1 10^3/uL (0.0-0.1); ABS Eosinophils 0.2 10^3/uL (0.0-0.5); ABS Lymphocytes 1.6 10^3/uL (1.0-4.8); ABS Monocytes 0.6 10^3/uL (0.0-0.9); ABS Neutrophils 7.1 10^3/uL (1.5-7.6); Eosinophil % 2.3 %; Hematocrit 33.7 % (35-45); Hemoglobin 11.4 g/dL (11.5-14.3); Lymphocyte % 16.4 %; Mean Corpuscular Hemoglobin 26.9 pg (27-33); Mean Corpuscular Volume 79.2 fL (80-97); Mean Platelet Volume 6.9 fL (7.5-11.2); Platelet Count 349 10^3/uL (150-450); Red Blood Count 4.25 10^6/uL (3.63-4.92); Red Cell Distribution Width 16.8 % (12-17); White Blood Count 9.6 10^3/uL (3.8-11.8)
[2024-07-02 06:12] LABS: Calcium 7.8 mg/dL (8.6-10.3); Creatinine, Serum 0.5 mg/dL (0.51-0.95); Magnesium 1.5 mg/dL (1.9-2.7)
[2024-07-02] MEDS: Magnesium Sulf 4 GM/100 ML IV 4,000 MG/100 ML BAG IVPB ONE (08:04)
[2024-07-03 05:01] LABS: ABS Eosinophils 0.3 10^3/uL (0.0-0.5); ABS Lymphocytes 1.7 10^3/uL (1.0-4.8); ABS Monocytes 0.5 10^3/uL (0.0-0.9); ABS Neutrophils 6.5 10^3/uL (1.5-7.6); Eosinophil % 3.1 %; Hemoglobin 10.9 g/dL (11.5-14.3); Mean Corpuscular Hemoglobin 27.1 pg (27-33); Mean Corpuscular Hgb Conc 34.1 g/dL (31-36); Mean Corpuscular Volume 79.2 fL (80-97); Mean Platelet Volume 6.8 fL (7.5-11.2); Platelet Count 348 10^3/uL (150-450); Red Blood Count 4.04 10^6/uL (3.63-4.92); Red Cell Distribution Width 16.6 % (12-17)
[2024-07-03 05:51] LABS: Calcium 8.5 mg/dL (8.6-10.3); Creatinine, Serum 0.66 mg/dL (0.51-0.95); Magnesium 1.8 mg/dL (1.9-2.7); Potassium 4.5 mmol/L (3.5-5.0); eGFR CKD-EPI 97.3 (>60)
[2024-07-03] MEDS: Magnesium Sulfate IV 1GM/100ML 1 GM/100 ML BAG IV ONE (08:30)
[2024-07-03] MEDS: Ondansetron ODT 4 mg TAB 4 MG TAB SL PRN (21:25)
[2024-07-05 07:12] LABS: Anion Gap 8 mmol/L (2-16); Blood Urea Nitrogen 16 mg/dL (6-24); CO2 Carbon Dioxide 29 mmol/L (22-32); Chloride 97 mmol/L (101-111); Creatinine, Serum 0.48 mg/dL (0.51-0.95); Glucose 117 mg/dL (70-100); Magnesium 1.6 mg/dL (1.9-2.7); Sodium 134 mmol/L (135-145)
[2024-07-05] MEDS ORDERED: Polyethylene Glycol 3350 17 GM PACKET PO PRN (09:51)
[2024-07-05] MEDS: Magnesium Sulfate 2 gm BAG 2 GM/50 ML BAG IVPB ONE (10:55)
[2024-07-05 12:21] LABS: Hemoglobin 11.7 g/dL (11.5-14.3)
[2024-07-05] MEDS: Magnesium Sulfate IV 1GM/100ML 1 GM/100 ML BAG IV ONE (12:24)
[2024-07-06] MEDS: Magnesium Sulfate 2 gm BAG 2 GM/50 ML BAG IVPB ONE (08:15)
[2024-07-06 13:35] VITALS: BP 129/72
[2024-07-06 15:04] LABS: Rapid COVID-19 Molecular Undetected (Undetected)
== END 2024-07-06 15:20 ==
LOC: EDHOLD 09:32 → ED 09:32 → SUATTDRO 16:05 → MED 07-03 14:46
PROVIDERS: ADMIT Hospitalist; ATTEND Hospitalist